=== PATIENT | female | born 1945 | race Caucasian/White ===

== ENCOUNTER 2016-05-03 11:34 | Inpatient (IN) | payer MEDICARE, MEDICAID ==
[~2016-05-03] VITALS: Ht 152.4 cm; Wt 74.5 kg
[2016-05-03] MEDS ORDERED: ACETAMINOPHEN 325 MG TAB PO PRN (15:30)
[2016-05-03] MEDS ORDERED: NEB-ALBUTEROL 2.5 MG/3 ML INH PRN (15:30)
[2016-05-03] MEDS ORDERED: METHYLPRED SOD SUCC 40 MG VIAL IV SCH (15:30)
[2016-05-03 15:41] VITALS: BP_SYST 182; RESP 20; TEMP 97.9
[2016-05-03 15:43] VITALS: Ht 152.4 cm; Wt 74.5 kg
[2016-05-03] MEDS ORDERED: LEVOFLOXACIN 750 MG/150 ML 150 ML IV SCH (16:17)
[2016-05-03] MEDS: AZITHROMYCIN 500 MG in SODIUM CHLORIDE 0.9% 250 ML IV SCH (16:43)
[2016-05-03] MEDS ORDERED: DUONEB INH ONE (16:49)
[2016-05-03 16:53] VITALS: RESP 18
[2016-05-03] MEDS: DUONEB INH SCH ×2 (16:53→23:33)
[2016-05-03] MEDS: CEFTRIAXONE 1 GM in SODIUM CHLORIDE 0.9% 50 ML IV SCH (18:57)
[2016-05-03 19:42] VITALS: BP_SYST 185; RESP 20; TEMP 98.1
[2016-05-03] MEDS: FAMOTIDINE 20 MG TAB PO SCH (19:52)
[2016-05-03 23:41] VITALS: BP_SYST 190; RESP 20; TEMP 98
[2016-05-04 03:58] VITALS: BP_SYST 172; RESP 18; TEMP 98
[2016-05-04] MEDS: DUONEB INH SCH ×5 (06:32→22:32)
[2016-05-04 07:52] VITALS: BP_SYST 178; RESP 18; TEMP 98.7
[2016-05-04] MEDS ORDERED: MISSING DOSE XX ONE ×3 (09:10→20:10)
[2016-05-04] MEDS: CEFTRIAXONE 1 GM in SODIUM CHLORIDE 0.9% 50 ML IV SCH (09:13)
[2016-05-04] MEDS: AZITHROMYCIN 500 MG in SODIUM CHLORIDE 0.9% 250 ML IV SCH (10:16)
[2016-05-04] MEDS: FAMOTIDINE 20 MG TAB PO SCH ×2 (10:16→20:32)
[2016-05-04] MEDS: Furosemide 20 MG/2 ML VIAL IV SCH ×2 (10:16→17:12)
[2016-05-04] MEDS: LISINOPRIL 20 MG TAB PO SCH (10:17)
[2016-05-04] MEDS: MONTELUKAST 10 MG TAB PO SCH (10:17)
[2016-05-04] MEDS: CHOLECALCIFEROL 1,000 UNITS TAB PO SCH (10:17)
[2016-05-04] MEDS: LORATADINE 10 MG TAB PO SCH (10:17)
[2016-05-04] MEDS: SERTRALINE 100 MG TAB PO SCH (10:17)
[2016-05-04] MEDS: Carvedilol 6.25 MG TAB PO SCH ×2 (10:17→20:32)
[2016-05-04] MEDS: METHYLPRED SOD SUCC 40 MG VIAL IV SCH ×2 (10:17→17:12)
[2016-05-04] MEDS: SPIRONOLACTONE 25 MG TAB PO SCH ×2 (10:17→20:32)
[2016-05-04] MEDS: NEB-BUDESONIDE 0.5 MG INH SCH ×2 (11:01→18:25)
[2016-05-04] MEDS: NEB-BROVANA 15 MCG/2 ML INH SCH ×2 (11:01→18:25)
[2016-05-04 11:45] VITALS: BP_SYST 161; RESP 18; TEMP 98.8
[2016-05-04] MEDS: KCL CR 20 MEQ TAB PO SCH ×2 (11:54→20:32)
[2016-05-04 16:00] VITALS: BP_SYST 165; RESP 18; TEMP 98.3
[2016-05-04 19:57] VITALS: BP_SYST 190; RESP 18; TEMP 98.2
[2016-05-04 23:49] VITALS: BP_SYST 168; RESP 18; TEMP 98.7
[2016-05-05] MEDS: Furosemide 20 MG/2 ML VIAL IV SCH ×3 (00:21→16:12)
[2016-05-05] MEDS: METHYLPRED SOD SUCC 40 MG VIAL IV SCH ×3 (00:23→16:12)
[2016-05-05 03:14] VITALS: BP_SYST 183; RESP 18; TEMP 98
[2016-05-05] MEDS: DUONEB INH SCH ×5 (06:49→22:49)
[2016-05-05] MEDS: NEB-BROVANA 15 MCG/2 ML INH SCH ×2 (06:49→18:41)
[2016-05-05] MEDS: NEB-BUDESONIDE 0.5 MG INH SCH ×2 (06:49→18:41)
[2016-05-05 07:15] VITALS: BP_SYST 181; RESP 16; TEMP 98.2
[2016-05-05] MEDS ORDERED: MISSING DOSE XX ONE ×2 (08:00→19:45)
[2016-05-05] MEDS: SPIRONOLACTONE 25 MG TAB PO SCH ×2 (08:19→19:51)
[2016-05-05] MEDS: FAMOTIDINE 20 MG TAB PO SCH ×2 (08:19→19:50)
[2016-05-05] MEDS: CEFTRIAXONE 1 GM in SODIUM CHLORIDE 0.9% 50 ML IV SCH (08:19)
[2016-05-05] MEDS: Carvedilol 6.25 MG TAB PO SCH ×2 (08:19→19:51)
[2016-05-05] MEDS: LORATADINE 10 MG TAB PO SCH (08:19)
[2016-05-05] MEDS: KCL CR 20 MEQ TAB PO SCH ×2 (08:19→19:50)
[2016-05-05] MEDS: MONTELUKAST 10 MG TAB PO SCH (08:19)
[2016-05-05] MEDS: CHOLECALCIFEROL 1,000 UNITS TAB PO SCH (08:19)
[2016-05-05] MEDS: LISINOPRIL 20 MG TAB PO SCH (08:20)
[2016-05-05] MEDS: SERTRALINE 100 MG TAB PO SCH (08:20)
[2016-05-05] MEDS: AZITHROMYCIN 500 MG in SODIUM CHLORIDE 0.9% 250 ML IV SCH (09:12)
[2016-05-05 10:58] VITALS: BP_SYST 169; RESP 16; TEMP 98
[2016-05-05 15:15] VITALS: BP_SYST 176; RESP 16; TEMP 98.5
[2016-05-05 19:30] VITALS: BP_SYST 165; RESP 18; TEMP 98.5
[2016-05-05 23:13] VITALS: BP_SYST 172; RESP 16; TEMP 98.4
[2016-05-06] MEDS: METHYLPRED SOD SUCC 40 MG VIAL IV SCH ×2 (01:17→09:37)
[2016-05-06] MEDS: Furosemide 20 MG/2 ML VIAL IV SCH ×2 (01:17→08:16)
[2016-05-06 03:35] VITALS: BP_SYST 181; RESP 18; TEMP 97.8
[2016-05-06] MEDS: NEB-BROVANA 15 MCG/2 ML INH SCH (06:29)
[2016-05-06] MEDS: DUONEB INH SCH ×2 (06:29→10:22)
[2016-05-06] MEDS: NEB-BUDESONIDE 0.5 MG INH SCH (06:29)
[2016-05-06 07:49] VITALS: BP_SYST 181; RESP 18; TEMP 97.7
[2016-05-06] MEDS: CEFTRIAXONE 1 GM in SODIUM CHLORIDE 0.9% 50 ML IV SCH (08:16)
[2016-05-06] MEDS: LORATADINE 10 MG TAB PO SCH (08:17)
[2016-05-06] MEDS: FAMOTIDINE 20 MG TAB PO SCH (08:17)
[2016-05-06] MEDS: SPIRONOLACTONE 25 MG TAB PO SCH (08:17)
[2016-05-06] MEDS: LISINOPRIL 20 MG TAB PO SCH (08:17)
[2016-05-06] MEDS: SERTRALINE 100 MG TAB PO SCH (08:18)
[2016-05-06] MEDS: MONTELUKAST 10 MG TAB PO SCH (08:18)
[2016-05-06] MEDS: CHOLECALCIFEROL 1,000 UNITS TAB PO SCH (08:18)
[2016-05-06] MEDS: KCL CR 20 MEQ TAB PO SCH (08:18)
[2016-05-06] MEDS: Carvedilol 6.25 MG TAB PO SCH (08:18)
[2016-05-06] MEDS: AZITHROMYCIN 500 MG in SODIUM CHLORIDE 0.9% 250 ML IV SCH (09:37)
[2016-05-06 11:31] VITALS: BP_SYST 158; RESP 18; TEMP 97.4
== END 2016-05-06 14:53 | disposition home or self-care (01) | DRG 291 ==
LOC: 4THE 11:34 → ENPENDDIS 11:34
PROVIDERS: ADMIT Family Medicine; ATTEND Family Medicine
DX: I50.41 Acute combined systolic (congestive) and diastolic (congestive) heart failure (principal); J96.01 Acute respiratory failure with hypoxia; J44.1 Chronic obstructive pulmonary disease with (acute) exacerbation; I82.409 Acute embolism and thrombosis of unspecified deep veins of unspecified lower extremity; I10 Essential (primary) hypertension; E78.5 Hyperlipidemia, unspecified; F41.9 Anxiety disorder, unspecified; F32.9 Major depressive disorder, single episode, unspecified; Z99.81 Dependence on supplemental oxygen; Z87.891 Personal history of nicotine dependence
CPT/HCPCS: 80053; 82553; 83880; 84484; 85025; 87040; 94640; 94799